=== PATIENT | male | born 1945 | race Caucasian/White ===

== ENCOUNTER 2016-05-28 09:42 | Outpatient (RCR) ==
[2016-05-28 10:06] VITALS: TEMP 97.5; BMI 26.6
[2016-06-14 09:59] VITALS: BP 116/62
== END 2016-06-18 ==
LOC: CAR.REHAB 09:42
PROVIDERS: ATTEND Internal Medicine
DX: I25.810 Atherosclerosis of coronary artery bypass graft(s) without angina pectoris (principal); I71.4 Abdominal aortic aneurysm, without rupture
CPT/HCPCS: 93798

== ENCOUNTER 2016-06-12 08:36 | Outpatient (CLI) ==
--- NOTE | 2016-06-12 09:39 | US ---
EXAM: RENAL ULTRASOUND, BILATERAL HISTORY: Chronic kidney disease FINDINGS: Guillory-scale ultrasound and color Doppler imaging was performed. The right kidney measures 10.5 x 4.7 x 4.3 centimeters. The left kidney measures 8.9 x 5.5 x 3.5 centimeters. Exam was described as technically difficult and limited secondary to body habitus. General cortical echogenicity and volume grossly within normal limits for age. There is central echo complex separa tion of the left kidney consistent with at least mild hydronephrosis. Circumferential urinary bladd er wall thickening is suggested. Probable prostate enlargement.
== END 2016-06-12 08:37 | disposition home or self-care (01) ==
LOC: RAD 08:36
PROVIDERS: ATTEND Family Medicine
DX: N18.3 Chronic kidney disease, stage 3 (moderate) (principal)
CPT/HCPCS: 76770

== ENCOUNTER 2016-06-19 06:50 | Outpatient (RCR) ==
[2016-07-12 09:55] VITALS: BP 118/64
== END 2016-07-16 ==
LOC: CAR.REHAB 06:50
PROVIDERS: ATTEND Internal Medicine
DX: Z95.1 Presence of aortocoronary bypass graft (principal); I71.4 Abdominal aortic aneurysm, without rupture
CPT/HCPCS: 93798

== ENCOUNTER 2016-07-17 06:54 | Outpatient (RCR) ==
[2016-08-16 09:53] VITALS: BP 108/64
== END 2016-08-16 ==
LOC: CAR.REHAB 06:54
PROVIDERS: ATTEND Internal Medicine
DX: Z95.1 Presence of aortocoronary bypass graft (principal); J44.9 Chronic obstructive pulmonary disease, unspecified; I71.4 Abdominal aortic aneurysm, without rupture
CPT/HCPCS: 93798

== ENCOUNTER 2016-07-26 08:49 | Outpatient (CLI) | payer OTHER | END 2016-07-26 08:50 | disposition home or self-care (01) | LOC: LAB 08:49 | PROVIDERS: ATTEND Urology | DX: N40.1 Benign prostatic hyperplasia with lower urinary tract symptoms (principal) | CPT/HCPCS: 36415; 84153 ==

== ENCOUNTER 2016-08-07 07:40 | Outpatient (CLI) ==
--- NOTE | 2016-08-07 08:43 | DI ---
EXAM: Single view of the abdomen HISTORY: Left sided renal stone. COMPARISON: Renal ultrasound 06/12/[address] abdomen pelvis. FINDINGS: Evaluation is limited due to overlying bowel gas. There is a surgical clip in the left ab domen. Limited evaluation of the kidneys demonstrates no definitive renal stone. There is a ovoid calcification in the left abdomen that may measuring 1.5 x 1.0 cm. Surgical clips are noted in the p gali. The osseous structures are unremarkable. There is a small calcification in the left pelvis measuring 0.4 cm. IMPRESSION: 1. Evaluation is limited due to overlying bowel gas and stool. No definitive stone is noted overly ing the kidneys. 2. Calcification overlying the left upper abdomen is consistent with stone demonstrated on same day CT abdomen pelvis.
--- NOTE | 2016-08-07 08:58 | CT ---
EXAM: CT abdomen pelvis without contrast HISTORY: Hydronephrosis and left renal calculi COMPARISON: Renal ultrasound 06/12/2016 and [facility] same day TECHNIQUE: Serial axial images of the abdomen pelvis were performed from the lung bases through the inferior pelvis without contrast. These were viewed in multiple planes. FINDINGS: The lung bases demonstrate minimal bibasilar bronchiectasis with mild lingular atelectasi s and small left pleural effusion. Evaluation is limited due to lack of contrast. The left kidney demonstrates moderate hydronephrosis and hydroureter secondary to proximal left ureteral stone that measuring 1.2 x 0.8 x 1.2 cm. The di stal left ureter is decompressed. No additional stone is identified. Urinary bladder is partially distended with minimal non dependent gas identified. There is no additional nonobstructing stones i dentified. The right kidney is unremarkable. The liver is unremarkable. There is layering dense material in the gallbladder with no visualized w all thickening or pericholecystic fluid. Common duct is unremarkable. The adrenal glands are unrem arkable. The spleen is unremarkable. The pancreas is unremarkable. The stomach is unremarkable. The small bowel in the abdomen pelvis is unremarkable. The colon is unremarkable. The appendix is normal. The urinary bladder is partially distended. The prostate is unremarkable with coarse calcif ications in the posterior prostate. There is no free air, free fluid or lymphadenopathy. The aorta demonstrates an aortic endograft in the distal aorta with extensions into the proximal iliac vessel s. There is a left iliac bypass graft. 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 The right common iliac is mildly enlarged measuring 2.6 cm with internal endograft present. There is mild degenerative disease of the spine with right L5 pars defect. IMPRESSION: 1. Moderate left hydronephrosis due to a proximal left ureteral stone measuring 1.2 x 0.8 x 1.2 cm. 2. Layering dense material in the gallbladder without evidence of cholecystitis. Suggestive of ston es versus sludge. 3. Aortic endograft and iliac endograft on the right is present. Left common iliac bypass graft is present. 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 4. Mild degenerative disease of the spine and right L5 pars defect.
== END 2016-08-07 07:41 | disposition home or self-care (01) ==
LOC: CAR 07:40
PROVIDERS: ATTEND Family Medicine
DX: I25.10 Atherosclerotic heart disease of native coronary artery without angina pectoris (principal); N20.0 Calculus of kidney; N13.30 Unspecified hydronephrosis
CPT/HCPCS: 74176; 94761

== ENCOUNTER 2016-08-17 07:00 | Outpatient (RCR) ==
[2016-09-13 09:47] VITALS: BP 102/64
== END 2016-09-15 ==
LOC: CAR.REHAB 07:00
PROVIDERS: ATTEND Internal Medicine
DX: Z95.1 Presence of aortocoronary bypass graft (principal); Z86.79 Personal history of other diseases of the circulatory system; J44.9 Chronic obstructive pulmonary disease, unspecified
CPT/HCPCS: 93798

== ENCOUNTER 2016-09-16 09:44 | Outpatient (RCR) ==
[2016-10-16 09:34] VITALS: BP 108/54
== END 2016-10-16 ==
LOC: CAR.REHAB 09:44
PROVIDERS: ATTEND Internal Medicine
DX: Z95.1 Presence of aortocoronary bypass graft (principal); Z86.79 Personal history of other diseases of the circulatory system; J44.9 Chronic obstructive pulmonary disease, unspecified
CPT/HCPCS: 93798

== ENCOUNTER 2016-10-17 10:26 | Outpatient (RCR) ==
[2016-11-13 09:59] VITALS: BP 102/54
== END 2016-11-15 ==
LOC: CAR.REHAB 10:26
PROVIDERS: ATTEND Internal Medicine
DX: Z95.1 Presence of aortocoronary bypass graft (principal); J44.9 Chronic obstructive pulmonary disease, unspecified; Z86.79 Personal history of other diseases of the circulatory system
CPT/HCPCS: 93798

== ENCOUNTER 2016-11-07 11:35 | Outpatient (CLI) ==
--- NOTE | 2016-11-07 14:24 | MRI ---
EXAM: MRI lumbar spine without IV contrast. DATE: 07 November 2016. HISTORY: Lumbar back pain. TECHNIQUE: Sagittal and axial T1W and T2W sequences of the lumbar spine along with sagittal IR and coronal T2W sequences were obtained using 1.2 Rachel magnet. No IV contrast. COMPARISON: CT L-spine 07 Oct 2008. FINDINGS: There are five [id number] lumbar vertebra. There is no lumbar scoliosis. A 1 mm an terior subluxation of L5 relative to S1 is observed. Right L5 pars interarticularis defect is ident ified. Old fracture with nonunion at the inferior left L5 facet is seen. No acute lumbar fracture, osseous malignancy, or other pars defect is detected. Lumbar vertebrae normal in height. Bone mar row signal is normal. Intervertebral discs are normal in height. Tiny osteophytes are seen at sergei ral levels. No sacral fracture or stress reaction is demonstrated. SI joints are unremarkable. Ab undant epidural fat at L5-S1 and in the sacral canal causes marked narrowing of the thecal sac. Con us medullaris terminates at T12-L1. Visible spinal cord is normal. No retroperitoneal lymphadenopathy or paraspinal mass is evident. An aorto-bi iliac bypass graft is seen. The [place] aortic diameter is 3.8 cm and L3 and L4 levels. Atherosclerotic plaques are presen t within the aortic wall. Left common iliac artery Psoas muscles are normal. There is minor bilate ral posterior paraspinal muscle atrophy. Visible portions of the liver, spleen, adrenal glands and right kidney are normal. A 7 mm and 10.5 mm T2W bright foci are revealed in the left renal pelvis. No bowel obstruction or malignancy is detected. Segmental analysis: T11-12: No disc protrusion or central stenosis. T12-L1: Normal. L1-2: Normal L2-3: Small concentric disc bulge and minor facet arthropathy cause mild central canal stenosis, mi nor right foraminal narrowing, and mild/moderate narrowing at the opening to the left foramen. L3-4: Minor concentric disc bulge and minor facet arthropathy cause mild central canal stenosis, mi ld /moderate right foraminal stenosis, and mild left foraminal stenosis. L4-5: Small posterior to foraminal disc bulge and mild facet arthropathy cause mild central canal s tenosis, minor right foraminal stenosis and mild/moderate left foraminal stenoses. Left L4 nerve ro ot contacts the disc bulge near the foramen, and could be a source for pain/radiculopathy. L5-S1: Minor posterior disc bulge does not cause central stenosis or foraminal stenosis. There is marked narrowing the thecal sac due to abundant epidural fat. IMPRESSIONS: 1. Lumbar spine minimal spondylosis, mild facet arthropathy, and multilevel DDD. 2. Multilevel foraminal stenoses. Left L4 nerve root contacts disc bulge near the foramen, and may be a source for pain/radiculopathy. 3. Mild central canal stenoses at L2-3, L2-4, L4-5. 4. Aortobi-iliac graft. Aorta and iliac artery ASVD. 4. Left kidney probable small parapelvic cysts.
--- NOTE | 2016-11-07 20:10 | MRI ---
EXAM: MRI left knee without contrast. HISTORY: Instability. No left knee surgery.. TECHNIQUE: Using a local extremity coil on a high field strength magnet multiplanar multisequence m agnet resonance imaging was performed of the left knee without intravenous or intra-articular gadoli nium contrast.. FINDINGS: I do not have prior radiographs of the left knee available for comparison at the time of this dictation. Within the medial compartment the medial meniscus is intact without discrete surfacing meniscal tear . The medial compartment cartilage congruent without focal underlying subchondral edema Within the lateral compartment lateral meniscus is intact without discrete surfacing meniscal tear. There may be some degeneration of the root insertion posterior horn lateral meniscus. The lateral compartment cartilage congruent without focal underlying subchondral edema. Within the patellofemoral compartment the patella seated with intact patellar attachment of the medi al and lateral patellar retinaculum. The patellar cartilage congruent without underlying subchondra l edema. Chondrosis and shallow cartilage ulceration measuring 10 mm over the inferior aspect of th e medial trochlear groove. No underlying subchondral edema. Trace left knee effusion. No osteochondral loose bodies. Intact anterior and posterior cruciate li gament fibers. The extensor mechanism is intact. Some proximal patellar tendinosis. Low grade spr ain proximal medial collateral ligament. The lateral collateral ligament complex intact as is the p osterolateral corner. Bone marrow signal intensity shows no acute fracture, stress fracture or bone erosions. Posterior is some mild strain of the plantaris and proximal lateral head of the soleus mu scle some mild strain of the proximal medial head gastrocnemius muscle as well. Some atrophy of the distal vastus lateralis. IMPRESSION: No discrete surfacing meniscal tear identified. There may be some degeneration of the root insertion posterior horn lateral meniscus. Chondrosis and shallow cartilage ulceration measuring 10 mm over the inferior aspect of the medial t rochlear groove. Trace left effusion. Intact cruciate ligaments. Low grade sprain proximal medial collateral ligament. No acute fracture or stress fracture. Mild strain of the plantaris and proximal lateral and medial h ead of the gastrocnemius musculature. Some atrophy of the distal vastus lateralis.
== END 2016-11-07 11:36 | disposition home or self-care (01) ==
LOC: RAD 11:35
PROVIDERS: ATTEND Family Medicine
DX: M25.362 Other instability, left knee (principal); M54.5 Low back pain; G89.29 Other chronic pain

== ENCOUNTER 2018-03-27 05:41 | Emergency (ER) | payer OTHER ==
[2018-03-27 05:54] VITALS: BP 106/71; TEMP 97; BMI 33.6
--- NOTE | 2018-03-27 06:33 | ED.PDOC ---
General ED Provider: Dr. JANNY MCLAUGHLIN Chief Complaint: Eye Problem Stated Complaint: Patient is a 72 year old male who noticed that the left eye was red and had drainage. Time Seen by Physician: 06:00 Mode of Arrival: Wheelchair Information Source: Patient Primary Care Provider: VALENTÍN HAYES Nursing and Triage Documentation Reviewed and Agree: Yes Does patient meet sepsis criteria?: No System Inflammatory Response Syndrome: Not Applicable Sepsis Protocol: For patient's 13 years and over: Temp is 96.8 and below OR 101 and greater Pulse >90 BPM Resp >20/minute Acutely Altered Mental Status Are patient's symptoms suggestive of a new infection, such as: -Pneumonia -Skin, Soft Tissue -Endocarditis -UTI -Bone, Joint Infection -Implantable Device -Acute Abdominal Infection -Wound Infection -Meningitis -Blood Stream Catheter Infection -Unknown EENT Complaint Exam - Eye Complaint/Exam Onset/Duration: last night Symptoms Are: Still present Timing: Constant Initial Severity: Mild Current Severity: Moderate Location: Left Character: Reports: Dull (irritable ) Aggravating: Reports: Light, Blinking Alleviating: Reports: None Associated Signs and Symptoms: Reports: Photophobia, Purulent drainage. Denies : Vision impairment, Fever, Swelling Related History: Reports: Similar episode. Denies: Foreign body, Trauma, Environmental, Meds used, Drops used Eye Surgical History: Reports: None Penetrating Injury Risk Factors: None Globe Rupture Risk Factors: None Acute Glaucoma Risk Factors: None Optic Artery Occlusion Risk Factors: None Visual Acuity Right Eye: 20/40 Visual Acuity Left Eye: 20/40 Visual Field: Normal Extraocular Movement: Normal Orbit Findings: Normal Globe Findings: Intact Lid Findings: Erythema Conjunctival Findings: Red, Exudate Corneal Findings: Clear Differential Diagnoses: Conjunctivitis Review of Systems - Review Of Systems Constitutional: Reports: No symptoms Eyes: Reports: Blurred vision (mild on the left), Vision change, Drainage, Inflammation, Photophobia Ears, Nose, Mouth, Throat: Reports: No symptoms Respiratory: Reports: No symptoms Cardiac: Reports: No symptoms GI: Reports: No symptoms : Reports: No symptoms Musculoskeletal: Reports: No symptoms Skin: Reports: No symptoms Neurological: Reports: No symptoms Endocrine: Reports: No symptoms Hematologic/Lymphatic: Reports: No symptoms All Other Systems: Reviewed and Negative Past Medical History - Past Medical History Previously Healthy: Yes Endocrine: Reports: None Cardiovascular: Reports: [place] Respiratory: Reports: None Hematological: Reports: None Gastrointestinal: Reports: None Genitourinary: Reports: Kidney stones Neuro/Psych: Reports: None Musculoskeletal: Reports: None Cancer: Reports: None Other Pertinent Past Medical History: Abdominal Aneurysm - Surgical History General Surgical History: Reports: CABG, Stent - Family History Family History: Reports: Unknown - Social History Smoking Status: Current every day smoker, Heavy tobacco smoker Hx Substance Use: No Alcohol Screening: None - Immunizations Tetanus Shot up to Date: No Physical Exam - Physical Exam Appearance: Well-appearing Eyes: Conjunctiva inflammed Neck: Supple Respiratory: Breath sounds diminished Cardiovascular: RRR, Pulses normal, No rub, No murmur Musculoskeletal: Normal strength, ROM intact, No edema, No calf tenderness Skin: Warm, Dry, Normal color Neurological: Sensation intact, Motor intact, Alert, Oriented Critical Care Note - Critical Care Note Total Time (mins): 0 Course - Course Vital Signs: Temp Pulse Resp BP Pulse Ox 03/27/18 05:41 97 F L 82 24 106/71 95 Departure - Departure Time of Disposition: 06:37 Disposition: HOME SELF-CARE Discharge Problem: Conjunctivitis Qualifiers: Conjunctivitis type: acute Acute conjunctivitis type: bacterial Laterality: left Qualified Code(s): H10.32 - Unspecified acute conjunctivitis, left eye Instructions: Conjunctivitis (ED) Condition: Stable Pt referred to PMD for follow-up: Yes IPMP verified?: No Additional Instructions: Use eye drops as prescribed to the left year every 4 hours as prescribed for 10 days Follow up with PCP and the eye clinic in 2-3 days Prescriptions: Gentamicin Sulfate Opth [Gentak Opth Trang] 1 drop OP Q4HR #10 drops Allergies/Adverse Reactions: Allergies latex Adverse Reaction (Verified 03/27/18 05:49) orange juice Adverse Reaction (Verified 10/01/14 12:20) Penicillins Adverse Reaction (Verified 10/01/14 12:20) Home Medications: Ambulatory Orders Gentamicin Sulfate Opth [Gentak Opth Trang] 1 drop OP Q4HR #10 drops 03/27/18 Disposition Discussed With: Patient, Family
== END 2018-03-27 06:49 | disposition home or self-care (01) ==
LOC: ED 05:41
DX: H10.32 Unspecified acute conjunctivitis, left eye (principal); F17.210 Nicotine dependence, cigarettes, uncomplicated
CPT/HCPCS: 99282

== ENCOUNTER 2018-06-16 11:32 | Outpatient (CLI) | END 2018-06-16 11:33 | disposition home or self-care (01) | LOC: CAR 11:32 | PROVIDERS: ATTEND Family Medicine | DX: R06.09 Other forms of dyspnea (principal) | CPT/HCPCS: 94761 ==